=== PATIENT | male | born 1965 | race Caucasian/White ===

== ENCOUNTER 2017-06-03 04:32 | Emergency (ER) | payer BC ==
[2017-06-03 04:38] VITALS: BP 136/77
[2017-06-03 05:13] LABS: CHLORIDE,CL 106 mmol/L (101-111); SODIUM,NA 142 mmol/L (135-145)
[2017-06-03] MEDS ORDERED: Ketorolac 30 MG/ML SDV IVPUSH ONE ×2 (05:36→05:37)
--- NOTE | 2017-06-03 05:51 | EDM.PDOC ---
ED HPI GENERAL MEDICAL PROBLEM - General Chief Complaint: Chest Pain Stated Complaint: PAST 4 DAYS TIGHTNESS IN CHEST, NUMBNESS LEFT HAND Time Seen by Provider: 06/03/17 05:46 Source of Information: Reports: Patient History Limitations: Reports: No Limitations - History of Present Illness INITIAL COMMENTS - FREE TEXT/NARRATIVE: c/o 4 days h/o constant pain in left upper chest area that this am his left arm felt achy and his older brother had [place] which worried him. so he decided to have it checked. states hadn't done anything strenuous. Left Chest Pain Score (Numeric/FACES): 6 - Related Data Allergies Allergy/AdvReac Type Severity Reaction Status Date / Time aspirin Allergy Other Verified 06/03/17 04:38 amoxicillin trihydrate AdvReac Diarrhea Verified 06/03/17 04:38 [From Augmentin] potassium clavulanate AdvReac Diarrhea Verified 06/03/17 04:38 [From Augmentin] Home Meds: Home Meds Esomeprazole Magnesium [Nexium] 40 mg PO DAILY 07/19/16 [History] Fenofibric Acid (Choline) [Fenofibric Acid] 135 mg PO DAILY 07/19/16 [History] Levothyroxine 25 mcg PO ACBREAKFAST 07/19/16 [History] Past Medical History HEENT History: Reports: None Cardiovascular History: Reports: High Cholesterol Respiratory History: Reports: Asthma Other Respiratory History: History of a colapsed lung while in college. Gastrointestinal History: Reports: GERD, Other (See Below) Other Gastrointestinal History: CHRONIC EPIGASTRIC PAIN Genitourinary History: Reports: None Musculoskeletal History: Reports: None Neurological History: Reports: None Psychiatric History: Reports: None Endocrine/Metabolic History: Reports: Hypothyroidism Hematologic History: Reports: None Immunologic History: Reports: None Oncologic (Cancer) History: Reports: None Dermatologic History: Reports: Eczema - Infectious Disease History Infectious Disease History: Reports: Chicken Pox - Past Surgical History HEENT Surgical History: Reports: None Cardiovascular Surgical History: Reports: None GI Surgical History: Reports: Colonoscopy, Hernia Repair/Other Neurological Surgical History: Reports: None Musculoskeletal Surgical History: Reports: None Social & Family History - Family History HEENT: Reports: Hearing Impairment, Impaired Vision Cardiac: Reports: CAD, High Cholesterol, [place] Respiratory: Reports: Asthma, Pneumothorax GI: Reports: Chronic Constipation, Diverticulitis, GERD, Irritable Bowel Syndrome : Reports: None Musculoskeletal: Reports: None Neurological: Reports: None Psychiatric: Reports: None Endocrine/Metabolic: Reports: Hypothyroidism Hematologic: Reports: None Dermatologic: Reports: None Oncologic: Reports: Colon - Tobacco Use Smoking Status *Q: Never Smoker Second Hand Smoke Exposure: No - Caffeine Use Caffeine Use: Reports: Coffee - Recreational Drug Use Recreational Drug Use: No ED ROS GENERAL - Review of Systems Review Of Systems: ROS reveals no pertinent complaints other than HPI. ED EXAM, GENERAL - Physical Exam Exam: See Below Exam Limited By: No Limitations General Appearance: Alert, WD/WN, No Apparent Distress, Anxious Ears: Hearing Grossly Normal Throat/Mouth: Normal Voice, No Airway Compromise Head: Atraumatic Neck: Non-Tender, Full Range of Motion Respiratory/Chest: No Respiratory Distress, Other (minimally tender pectoral region on deep palpation) Cardiovascular: Regular Rate, Rhythm GI/Abdominal: Soft, Non-Tender Neurological: Alert, Oriented, Normal Cognition, Normal Gait, No Motor/Sensory Deficits Psychiatric: Normal Affect, Normal Mood Skin Exam: Warm, Dry, Normal Color Lymphatic: No Adenopathy Course - Vital Signs Last Recorded V/S: Last Vital Signs Temp 35.6 C 06/03/17 04:34 Pulse 67 06/03/17 04:34 Resp 18 06/03/17 04:34 BP 136/77 06/03/17 04:34 Pulse Ox 100 06/03/17 04:34 - Orders/Labs/Meds Orders: Active Orders 24 hr Category Date Time Status EKG Documentation Completion [RC] STAT Care 06/03/17 04:47 Active Chest 1V Frontal [CR] Urgent Exams 06/03/17 04:49 Taken Labs: Laboratory Tests 06/03/17 06/03/17 Range/Units 04:45 04:45 WBC 6.7 (5.0-10.0) 10^3/uL RBC 5.06 (4.6-6.2) 10^6/uL Hgb 14.6 (14.0-18.0) g/dL Hct 43.5 (40.0-54.0) % MCV 86.0 (80-100) fL MCH 28.9 (27.0-34.0) pg MCHC 33.6 (33.0-35.0) g/dL Plt Count 169 (150-450) 10^3/uL Neut % (Auto) 47.7 (42.2-75.2) % Lymph % (Auto) 42.2 (20.5-50.1) % [place] % (Auto) 8.0 (2-8) % Eos % (Auto) 1.5 (1.0-3.0) % Baso % (Auto) 0.6 (0.0-1.0) % Sodium 142 (135-145) mmol/L Potassium 3.8 (3.6-5.0) mmol/L Chloride 106 (101-111) mmol/L Carbon Dioxide 27.0 (21.0-31.0) mmol/L Anion Gap 12.8 BUN 20 H (7-18) mg/dL Creatinine 1.3 (0.6-1.3) mg/dL Est Cr Clr Drug Dosing 87.88 mL/min Estimated GFR (MDRD) 58 BUN/Creatinine Ratio 15.38 Glucose 101 (74-105) mg/dL Calcium 9.5 (8.4-10.2) mg/dl Total Bilirubin 0.3 (0.2-1.0) mg/dL AST 29 (10-42) IU/L ALT 16 (10-60) IU/L Alkaline Phosphatase 42 (42-121) IU/L Troponin I < 0.02 (0.00-0.02) ng/ml B-Natriuretic Peptide 5 (0-100) pg/ml Total Protein 7.0 (6.7-8.2) g/dl Albumin 4.4 (3.2-5.5) g/dl Globulin 2.6 Albumin/Globulin Ratio 1.69 Meds: Medications Discontinued Medications Generic Name Dose Route Start Last Admin Trade Name Freq PRN Reason Stop Dose Admin Ketorolac Tromethamine 15 mg 06/03/17 05:36 Toradol IVPUSH 06/03/17 05:37 ONETIME ONE Ketorolac Tromethamine 30 mg 06/03/17 05:37 06/03/17 05:42 Toradol IVPUSH 06/03/17 05:38 30 mg ONETIME ONE Administration - Re-Assessments/Exams Free Text/Narrative Re-Assessment/Exam: 06/03/17 05:51 results discussed with pt. Departure - Departure Time of Disposition: 06:48 Disposition: Home, Self-Care 01 Condition: Good Clinical Impression: Atypical chest pain Instructions: Nonspecific Chest Pain, [id number] Forms: ED Department Discharge Additional Instructions: 1) rest and avoid vigorous activities 2) try heat to sore area 3) follow up at clinic or recheck as needed - My Orders Last 24 Hours: My Active Orders 06/03/17 04:47 EKG Documentation Completion [RC] STAT 06/03/17 04:49 Chest 1V Frontal [CR] Urgent - Assessment/Plan Last 24 Hours: My Active Orders 06/03/17 04:47 EKG Documentation Completion [RC] STAT 06/03/17 04:49 Chest 1V Frontal [CR] Urgent
--- NOTE | 2017-06-07 15:22 | EKG ---
06/03/2017- LUCILLE NIELSEN - EKG per my reading shows sinus rhythm at the rate of 59. [facility] /[id number]
== END 2017-06-03 06:52 | disposition home or self-care (01) ==
LOC: DL.ED 04:32
DX: R07.89 Other chest pain (principal); E78.00 Pure hypercholesterolemia, unspecified; J45.909 Unspecified asthma, uncomplicated; K21.9 Gastro-esophageal reflux disease without esophagitis; E03.9 Hypothyroidism, unspecified; Z98.890 Other specified postprocedural states; Z79.899 Other long term (current) drug therapy; Z88.1 Allergy status to other antibiotic agents; Z88.6 Allergy status to analgesic agent
CPT/HCPCS: 36415; 71010; 80053; 83880; 84484; 85025; 93005; 99285; J1885

== ENCOUNTER → 2019-08-19 | Day surgery (SDC) | payer BC ==
[2019-08-19 14:24] VITALS: BP 111/66; PULSE 76
--- NOTE | 2019-08-19 14:43 | OR ---
DATE: 08/19/2019 INTRODUCTION: This 54-year-old male was seen last month in the Surgery Clinic with multiple skin tags that he is requesting to be removed and a couple of keratosis on the leg. PROCEDURE IN DETAIL: After adequate preparation, these areas were anesthetized. He had one small 3 mm keratosis on the left cheek of the face. This was then hyfrecated with a cautery device down to the deeper layer of the skin. A skin tag on the medial upper left thigh was also anesthetized and taken off, and two more keratosis areas on the left leg, one on the lateral and one on the medial surface, were also hyfrecated. Again, both measured, each one of these, about 3 to 4 mm. No other part of the procedure was necessary. [facility] /[id number]
== END ==
LOC: DL.SDS 12:55
PROVIDERS: ATTEND Surgery
DX: L91.8 Other hypertrophic disorders of the skin (principal)
CPT/HCPCS: 11200; J2001

== ENCOUNTER 2021-07-27 06:52 | Day surgery (SDC) | payer BC ==
[~2021-07-27 06:52] MED LIST: Midazolam 1 MG/ML 2 ML SDV ONE; fentaNYL 100 MCG/2 ML SDV ONE
[2021-07-27] MEDS ORDERED: fentaNYL 100 MCG/2 ML SDV IV ONE ×7 (06:53→08:35)
[2021-07-27] MEDS ORDERED: Midazolam 1 MG/ML 2 ML SDV IV ONE ×7 (06:53→08:29)
[2021-07-27] MEDS ORDERED: Dextrose 5%-0.45% NaCl 1,000 ML IV SCH (07:30)
--- NOTE | 2021-07-27 10:56 | OR ---
DATE: 07/27/2021 PROCEDURES: Total colonoscopy and pinch biopsy. INSTRUMENT USED: PCF-H190DL Olympus video colonoscope. PREMEDICATIONS: Fentanyl 200 mcg intravenous, Versed 4 mg intravenous. Nasal O2 cannula. The procedure was done under pulse oximetry, BP recording, and cardiac exercise physiologist. INDICATIONS: The patient with rectal bleeding and high-risk family history for colon cancer. Colonoscopic examination is done for detection of any polypoid lesions and removal, endoscopic hemostasis therapy if needed. DESCRIPTION OF PROCEDURE: Initial rectal exam showed BPH. Rigid anoscopy showed moderate-sized internal hemorrhoids without bleeding from them. The colonoscope was passed with ease. In the mid descending colon, 5 mm sized benign-appearing polyp was noted, photograph was taken. The entire polyp was removed by pinch biopsy of the base. The scope was passed with ease up to the ileocecal area, photographs were taken of the normal-appearing cecum, and identified by landmarks of appendiceal orifice and double-bulged ileocecal folds. The colon was found to be tortuous and redundant. No bleeding was noted from any of the visualized areas at the commencement of the examination. The bowel preparation was found to be adequate; [place] scale 2 in right and left colon, 3 in transverse colon, total score 7. No stricture, no vascular ectasia. No large isolated ulcerations seen. No evidence of diffuse inflammatory bowel disease in the form of friability, contact bleeding, or ulcerations. Probing the proximal sides of folds and flexures using adequate distention and clearing up the stool material, withdrawal of the scope was made, cecum to rectum time over 6 minutes. No bleeding was noted from any of the visualized areas at the completion of the examination. IMPRESSION: 1. Internal hemorrhoids. 2. Descending colon polyp. The patient tolerated the procedure well. [facility] /[id number]
[2021-07-27 12:28] VITALS: BP 102/60; PULSE 62
== END 2021-07-27 10:51 | disposition home or self-care (01) ==
LOC: DL.ENDO 06:52
PROVIDERS: ATTEND Internal Medicine Gastroenterology
DX: K51.40 Inflammatory polyps of colon without complications (principal); K64.8 Other hemorrhoids; J30.9 Allergic rhinitis, unspecified; K21.9 Gastro-esophageal reflux disease without esophagitis; E66.09 Other obesity due to excess calories; I87.2 Venous insufficiency (chronic) (peripheral); Z01.812 Encounter for preprocedural laboratory examination; Z20.822 Contact with and (suspected) exposure to COVID-19; Z80.0 Family history of malignant neoplasm of digestive organs; Z79.890 Hormone replacement therapy
CPT/HCPCS: 45380; 87635; J2250; J3010; J7042; U0002